=== PATIENT | male | born 1945 | race Caucasian/White ===

== ENCOUNTER 2018-09-30 10:50 | Day surgery (SDC) | payer OTHER | END 2018-09-30 17:05 | disposition home or self-care (01) | LOC: AMB-ENDOS 10:50 | DX: D12.4 Benign neoplasm of descending colon (principal); D12.8 Benign neoplasm of rectum ==

== ENCOUNTER 2020-01-17 05:35 | Day surgery (SDC) | payer OTHER | END 2020-01-17 10:00 | disposition home or self-care (01) | LOC: AMB-ENDOS 05:35 | PROVIDERS: ATTEND Colon & Rectal Surgery | DX: D12.4 Benign neoplasm of descending colon (principal); K64.1 Second degree hemorrhoids; Z20.828 Contact with and (suspected) exposure to other viral communicable diseases ==

== ENCOUNTER 2022-03-12 10:30 | Inpatient (IN) | payer OTHER ==
[~2022-03-12] VITALS: Ht 172.7 cm; Wt 98.4 kg
[2022-03-12] MEDS ORDERED: NORVASC5 MG PO (12:43)
[2022-03-12] MEDS ORDERED: SYNTHROID75 MCG PO (12:43)
[2022-03-12] MEDS ORDERED: ZESTRIL40 M1 PO (12:43)
[2022-03-12] MEDS ORDERED: ASA81 MG PO (12:44)
[2022-03-12] MEDS ORDERED: HYDROCHL PO (12:44)
[2022-03-18] MEDS ORDERED: HYDROCHLOROTHIA25 MG (08:15)
== END 2022-03-19 10:40 | disposition home or self-care (01) | DRG 395 ==
LOC: O/R 03-18 06:10 → SURH 03-18 06:10
PROVIDERS: ADMIT Colon & Rectal Surgery; ATTEND Colon & Rectal Surgery
PROC: 0DJD8ZZ Inspection of Lower Intestinal Tract, Via Natural or Artificial Opening Endoscopic (ICD-10-PCS; 2022-03-18)
PROC: 0DBP8ZZ Excision of Rectum, Via Natural or Artificial Opening Endoscopic (ICD-10-PCS; principal; 2022-03-18 12:15)
DX: D12.8 Benign neoplasm of rectum (principal); Z20.822 Contact with and (suspected) exposure to COVID-19